=== PATIENT | female | born 1955 | race Caucasian/White ===

== ENCOUNTER → 2020-08-24 10:01 | Outpatient (CLI) | payer OTHER, SELFPAY ==
--- NOTE | 2020-08-24 10:39 | DI.CT.S_ITS ---
PROCEDURE: CT LUMBAR SPINE WO CON INDICATIONS: Other spondylosis with radiculopathy, lumbosacral TECHNIQUE: Noncontrast 3 mm thick sections acquired from the T12 level to the sacrum. Sagittal and coronal reformats were constructed. For radiation dose reduction, the following was used: automated exposure control. COMPARISON: [facility], MR, MR LUMBAR SPINE WITHOUT CONTRAST, 03/10/2020, 17:33. [facility], CR, XR LUMBAR SPINE WITH OLBIQUES PLUS FLEXION EXTENSION, 01/29/2020, 11:29. FINDINGS: Image quality: Excellent. Bones: There is mild L3-L4 anterolisthesis. No acute vertebral body compression fractures. No suspicious lytic or blastic bony lesions. No pars defects. T12-L1: Normal appearance. L1-L2: Normal appearance. L2-L3: Normal appearance. L3-L4: Disc height is normal. Mild, diffuse disc bulge. Moderate to severe bilateral facet hypertrophy. Moderate narrowing of the central canal. Mild bilateral neural foraminal narrowing. No neural compression L4-L5: Loss of disc height. Vacuum disc phenomenon. Mild, diffuse disc bulge. Right central disc extrusion not significantly changed compared to prior MRI. Mild bilateral facet hypertrophy. Moderate to severe narrowing of the central canal. Mild bilateral neural foraminal narrowing. L5-S1: Disc height is normal. Vacuum disc phenomenon. Mild, diffuse disc bulge. Small left central disc protrusion. Mild bilateral facet hypertrophy. Epidural lipomatosis. Severe narrowing of the central canal. Mild right and moderate to severe left neural foraminal narrowing with slight compression of the exiting left L5 nerve root. Soft tissues: Diffuse fatty infiltration of the visualized liver. No retroperitoneal masses or hematomas. Visualized aorta is normal in caliber. Scattered atherosclerotic calcifications involving the visualized abdominal and pelvic vasculature. IMPRESSION: 1. Grade 1 L3-L4 degenerative spondylolisthesis. 2. Multilevel degenerative disc disease. 3. Multilevel facet arthropathy. 4. Severe L5-S1 central canal narrowing. 5. Moderate to severe left L5-S1 neural foraminal narrowing. 6. L4-L5 right central disc extrusion and left central L5-S1 disc protrusion. Dictated by: Nisa Kelley MD, PhD on 08/24/2020 at 12:14 Approved by: Nisa Kelley MD, PhD on 08/24/2020 at 12:20
== END ==
PROVIDERS: PCP Family Medicine; Referring Provider Orthopaedic Surgery Orthopaedic Surgery of the Spine; Visit Provider Orthopaedic Surgery Orthopaedic Surgery of the Spine
DX: M47.27 Other spondylosis with radiculopathy, lumbosacral region (principal); M47.26 Other spondylosis with radiculopathy, lumbar region; M43.16 Spondylolisthesis, lumbar region; M51.16 Intervertebral disc disorders with radiculopathy, lumbar region; M51.17 Intervertebral disc disorders with radiculopathy, lumbosacral region; M48.07 Spinal stenosis, lumbosacral region; M48.061 Spinal stenosis, lumbar region without neurogenic claudication
CPT/HCPCS: 72131

== ENCOUNTER → 2020-08-24 10:35 | Outpatient (CLI) | payer OTHER, SELFPAY ==
[2020-08-24 15:47] LABS: COVID19 -Nasal RAPID Negative (Negative)
== END ==
PROVIDERS: PCP Family Medicine; Visit Provider Physician Assistant
DX: Z01.812 Encounter for preprocedural laboratory examination (principal); Z20.822 Contact with and (suspected) exposure to COVID-19
CPT/HCPCS: 87635

== ENCOUNTER 2020-08-26 10:35 | Inpatient (IN) | payer OTHER, SELFPAY ==
[2020-08-19 13:56] VITALS: BMI 31.4
[2020-08-26] VITALS (11 sets, daily range): BP systolic 144–182; BP diastolic 70–112; PULSE 80–107; RESP 13–16; TEMP 35.7–37.4; O2SAT 93–100; BMI 31.4
--- NOTE | 2020-08-26 | DI.RAD.S_ITS ---
PROCEDURE: XR LUMBAR SPINE 2-3V INDICATIONS: L3-5 TLIF TECHNIQUE: 3 intraoperative fluoroscopic views of the lumbar spine were acquired. COMPARISON: [facility], CT, CT LUMBAR SPINE WO CON, 08/24/2020, 10:23. FINDINGS: 2 limited fluoroscopic images of the lumbar spine demonstrate interval discectomies of the L3-4 and L4-5 discs as well as posterior spinal fusion with bilateral pedicular screws and paraspinal rods. No gross hardware complications. Alignment appears anatomic. IMPRESSION: Intraoperative fluoroscopic support for posterior spinal fusion of L3 through L5. No gross hardware complications. Please see procedural note for further details. Dictated by: Tacho Coreas M.D. on 08/26/2020 at 16:59 Approved by: Tacho Coreas M.D. on 08/26/2020 at 17:01
[2020-08-26] MEDS: LACTATED RINGERS 1,000 ML 42 ML IV ×2 (11:04→15:39)
--- NOTE | 2020-08-26 11:40 | PM.PREOP ---
Pre-operative Note COVID-19 COVID-19 status: Negative Result date/Date tested (Pos, Neg/Pending): 08/24/20 Interval Note History & Physical reviewed/Exam performed by Physician: Yes Changes to H&P: No
[2020-08-26] MEDS: CEFAZOLIN 1 GM VIAL 2 GM IV ×2 (12:51→20:31)
--- NOTE | 2020-08-26 13:21 | SUR.OPER ---
Prone on spine table, head in foam head support, padded chest and pelvic supports, gel pad at knees, lower legs supported by pillows; nipples, genitalia and toes free of pressure, arms secured on foam padded arm boards at <90 degrees abduction. Tape over blanket at thigh secured to table.
[2020-08-26] MEDS: BUPIVACAINE LIPOSOME 266 MG/20 ML VIAL INJ (13:31)
[2020-08-26] MEDS: BUPIVACAINE 0.25% W/ EPI 30 ML VIAL INJ (13:32)
--- NOTE | 2020-08-26 16:43 | PM.OP.1 ---
Operative Date/Time/Diagnoses Date of procedure: 08/26/20 Time of procedure: 13:00 Pre-op diagnosis: 1. L3-4 spondylolisthesis 2. L3-4, L4-5, L5-S1 spinal stenosis 3. Lumbar spondylosis with radiculopathy Post-op diagnosis: same Procedure & Clinicians Procedure: 1. L3-4, L4-5 Postero-lateral and posterior interbody fusion 2. L3-4, L4-5 interbody cage placement. 3. L3-4, L4-5 decompressive laminectomy with bilateral facetecomies 4. L3-4, L4-5 Posterior segmental instrumentation 5. L5-S1 right hemilaminectomy 6. [place] of bone marrow from iliac crest 7. Utilization of microsurgical technique and operating microscope 8. Robotic assisted navigation for implant insertion Same procedure as scheduled: Yes Indications: Patient has been having chronic back pain and worsening lumbar radiculopathy. Patient failed multiple conservative management with worsening pain weakness and numbness in her lower extremity. Patient has been having difficulty performing activity of daily living. After discussing risks benefits of treatment options, patient elected proceed with surgery. Surgeon: Ron Hendrix Forming Roll Operator Heavy Duty: Ridge Burden Click Yes if Unassisted: No Anesthesia Type: General Operative Notes Closure Type: primary Specimen(s): none sent Prosthetic devices, grafts, tissues, transplants, or devices: Globus CREO MIS screws, Rise cages Applied: catheter Estimated Blood Loss (mL): 100 Blood products transfused: none Procedure in detail: Patient was seen in the preoperative area. Risks and benefits of the surgery was discussed with the patient. Informed consent was obtained from the patient and placed in the chart. Surgical site was marked. Patient was taken to the operative room. General anesthesia was administered. Prophylactic antibiotic was given to the patient less than 30 min before the incision was made. Patient was placed into a prone position on the Vince table. Patient's back was then prepped and draped in the sterile fashion. Time-out was performed at this time. After patient was prepped and draped, patient's PSIS was palpated and marked bilaterally. Small 1 cm incision was made over the PSIS for placement of the reference probes. Two trocar was placed into the PSIS 1 on each side. The reference probe was attached to the trocar of the reference apparatus. At this time the C-arm imaging was used to confirm AP and lateral of L3, L4-L5 vertebrae and merged the C-arm imaging using the [employer] robotic navigation system with the CT of the lumbar spine. After successful merging was completed and confirmed, skin marker was used to gloria out the skin incision using the [employer] robotic arm. Bilateral incision was made at this time. Pre templated trajectory was used and guided using the [employer] robotic navigation system for bilateral L3 L4, L5 pedicle screw placement. This was done by using the robotic arm to guide the high-speed bur to make a cortical entry point. Next a drill was placed also using the robotic arm and guided using the navigation system drilling partially through bilateral L3, L4, L5 pedicles. Next L3, L4, L5 pedicle screws it was pre templated and measured was placed onto the power guard driver and inserted into the pedicles bilaterally. After all 6 screws were placed C-arm imaging was taken of both AP and lateral to confirm the placement. Excellent placement of the screws were confirmed and a matched precisely with the pre planned screw placement using the navigation system. MARs retractor was inserted using LookBookerivation guidence. Globus MARS retractors was placed inside the incision and docked onto the L3, L4 lamina. Using microsurgical technique and operating microscope, a L4, L5 laminectomy and L3-4, L4-5 facetectomy was performed using a Kerrison rongeur. Patient was found have severe lateral recess and neural foramen stenosis which was fully decompressed after the laminectomy facetectomy. More than 75% of the facets were removed during the process of decompression rendering L3-4, L4-5 level grossly unstable and required a fusion procedure at the same time. The disc space at L3-4, L4-5 was identified, and a total diskectomy was performed at L3-4, L4-5 level. The endplates were decorticated using a rasp and shaver. The total diskectomy and decortication was performed at L3-4, L4-5 level in order to to accomplish a L3-4, L4-5 fusion. The local bone from the laminectomy and facetectomy was saved for local bone grafting. After the total diskectomy and decortication was completed, Trifecta bone graft material was combined with local bone that was harvested earlier. At this time, a separate skin is incision was made over the iliac crest. A Jamshidi needle was inserted into the iliac crest through a separate skin incision. 5 cc of bone marrow aspiration was obtained through the separate skin incision using a Jamshidi needle from the iliac crest. The bone marrow aspiration was combined with local bone and the Trifecta bone grafting material. The bone grafting material was placed into the L3-4, L4-5 interbody space along with expandable cages. One cage each was inserted into the L3-4 L4-5 interbody space along with bone graft material. The cage was expanded to its maximum height using the torque limiting screwdriver. The disc preparation as well as the cage insertion were also performed under navigation guidance. After the cage was placed, AP and lateral C-arm imaging was taken to confirm placement of the cage and excellent position was confirmed. MARS retractor was redirected over the L5-S1 interval. Using microsurgical technique and operating microscope, a L5-S1 hemilaminectomy was performed using Kerrison rongeur to decompress the epidural space and lateral recess. The L5-S1 space was fully decompressed after the hemilaminectomy was completed. Globus MARS retractor was inserted and docked onto the L3-4, L4-5 posterolateral gutter on the right side. Using the power drill, posterior-lateral decortication was performed at L3-4, L4-5 level until bleeding cortical bone was identified. The remaining bone grafting material was placed into the L3-4, L4-5 posterior lateral gutter he order to accomplish posterolateral fusion at the L3-4, L4-5 level. At this time the tulips were attached to the L3, L4-L5 pedicle screw shanks. After measuring the length of the rods, they were inserted into the tulips of the pedicle screws and locked in place using locking caps and torque limiting screwdriver bilaterally. Total 6 caps and 2 titanium rods was used in order to complete the posterior instrumentation construct. After all the hardware was placed, and confirmed with AP and lateral C-arm imaging, the wound was then irrigated with sterile normal saline and packed with Ray-Herb gauze for 3 min to accomplish hemostasis. After the gauze was removed the deep fascia was closed with #1 Vicryl suture. The subcutaneous layer was closed with 2-0 Vicryl. The skin was closed with skin subha. Patient tolerated the procedure well. There were no complications. Neuro monitoring system was used to monitor patient's neurologic status throughout entire procedure. There was no disturbance of the neural monitoring signals throughout the case. Complications: none Post-operative Condition: stable Disposition: PACU Plan for aftercare: Admit to inpatient hospital
[2020-08-26] MEDS: fentaNYL 100 MCG/2 ML INJ IV ×2 (17:13→17:15)
[2020-08-26] MEDS: OXYCODONE/ACETAMINOPHEN 5/325 TABLET 1 TAB PO (17:18)
[2020-08-26] MEDS: hydrOXYzine pamoate 25 MG CAPSULE PO (18:20)
[2020-08-26] MEDS: HYDROMORPHONE 0.5 MG INJ IV ×3 (18:20→22:55)
[2020-08-26] MEDS: SODIUM CHLORIDE 0.9% 1,000 ML 100 ML IV (18:20)
[2020-08-26] MEDS: ACETAMINOPHEN 325 MG TABLET 650 MG PO (19:26)
[2020-08-26] MEDS: OXYCODONE IR 5 MG TABLET 10 MG PO ×2 (19:26→22:20)
[2020-08-26] MEDS: DOCUSATE 100 MG CAPSULE PO (20:31)
[2020-08-26] MEDS: SENNOSIDES 8.6 MG TABLET 17.2 MG PO (20:31)
[2020-08-26] MEDS: GABAPENTIN 300 MG CAPSULE PO (20:31)
--- NOTE | 2020-08-26 21:48 | PC.NURSE ---
Patient struggling with pain post op. Arrived on unit at 1750 and was in 10/10 pain. Hydroxyzine and 0.5mg dilaudid given at 1819 and oxycodone 10mg given at 1925. Another dose of dilaudid given at 2031 and will plan on giving oxycodone 10mg again at 2199 as patient is more comfortable but still around a 5 consistently and would like to keep ahead of the pain. We have repositioned and offered an ice pack. VS show some HTN and pulses in the 90s, 96% on RA.
[2020-08-27] VITALS (8 sets, daily range): BP systolic 113–178; BP diastolic 61–96; PULSE 77–87; RESP 17–18; TEMP 36.7–37.4; O2SAT 91–100
[2020-08-27] MEDS: ALPRAZolam 0.5 MG TABLET PO (01:10)
[2020-08-27] MEDS: HYDROMORPHONE 0.5 MG INJ IV (01:12)
[2020-08-27] MEDS: lisinopriL 20 MG TABLET PO (01:57)
--- NOTE | 2020-08-27 03:16 | PC.NURSE ---
At shift change patient having 7/10 back pain and had recently been medicated with Dilaudid so repositioned onto side and ice applied to back and pain improved to 4/10. At time of assessment patient alert and oriented. Breath sounds CTA with RA sat of 99%. HRR. BP elevated at 178/96 and noted past BP's also very high and patient had not received Lisinopril yesterday due to surgery so requested/medicated with a.m. dose of Lisinopril. Denied nausea. BT present but denied passing flatus as yet. Indwelling catheter is patent. Is able to turn self with staff encouragement and assistance to position pillows. Dressing to back is CDI. Gait not assessed as has not yet been out of bed. Did state she has some numbness in right thigh and lateral lower leg but admits this was present pre-op. Wearing bilateral foot SCD's. Patient was tearful at 0100 as stated pain back up to 7/10 and was again medicated with Dilaudid and is currently asleep. Also medicated with Alprazolam for anxiety. Fall risk score is moderate and bed alarm is activated.
[2020-08-27] MEDS: OXYCODONE IR 5 MG TABLET 10 MG PO ×2 (03:29→06:26)
[2020-08-27] MEDS: hydrOXYzine pamoate 25 MG CAPSULE PO ×3 (03:29→21:00)
[2020-08-27] MEDS: CEFAZOLIN 1 GM VIAL 2 GM IV (04:53)
[2020-08-27 06:00] LABS: Hematocrit 39.5 % (36-46); Hemoglobin 13.2 g/dL (12.0-16.0)
--- NOTE | 2020-08-27 08:06 | PC.NURSE ---
Addendum entered by Marce Muir R.N. 08/27/20 13:32: Patient started on Decadron and 10mg of iv given, she was just given dilaudid 4mg and this does seem to help her discomfort some. Patient oral intake good, not eating a lot of food at meals yet. She is resting at this time. Original Note: Assess- Patient is alert and oriented x3, she was having some pain issues through the night. Changed pain medication to oral dilaudid, will try this and see if the medication helps more. She has a dressing to her lower back that is cdi, she is able to turn side to side in bed, although it does hurt her. Patients claudio catheter is patent and putting out yellow urine. She is supine and waiting for breakfast. Due for more pain medication around 0930.
[2020-08-27] MEDS: DOCUSATE 100 MG CAPSULE PO ×2 (08:59→20:59)
[2020-08-27] MEDS: ACETAMINOPHEN 325 MG TABLET 650 MG PO (08:59)
[2020-08-27] MEDS: NIFEdipine 30 MG TAB ER PO (08:59)
[2020-08-27] MEDS: HYDROMORPHONE 4 MG TABLET PO ×4 (08:59→20:58)
[2020-08-27] MEDS: SODIUM CHLORIDE 0.9% FLUSH 10 ML IV ×2 (09:00→20:58)
--- NOTE | 2020-08-27 10:53 | OT.IPNOTE ---
Per Pt not wanting to get up for OT at this time. Pt got up with PT earlier to the edge of the bed and felt faint and BP dropped. To check on pt again this afternoon, otherwise to do OT eval tomorrow.
[2020-08-27] MEDS: DEXAMETHASONE 10 MG/ML VIAL IV (12:06)
--- NOTE | 2020-08-27 12:56 | PT.IIE ---
Current Diagnoses Spondylolisthesis, lumbar region (08/26/20) Other spondylosis with radiculopathy, lumbosacral region (08/26/20) Spinal stenosis, lumbar region with neurogenic claudication (08/26/20) Surgery Performed Operation Date: 08/26/20 12:15 Actual Procedures p L5-S1 left hemilaminectomy, L3-4, L4-5 TLIF w. posterior instrumentation - Ron Hendrix MD Medical History (Last Updated 08/19/20 @ 14:17 by Jada Lindsey RN) Anxiety Arthritis Eczema Elevated cholesterol HTN (hypertension) SCC (squamous cell carcinoma) Sciatica Physical Therapy Inpatient Evaluation/Re-Eval M1 PT/OT-IP Prior Functional Status Start: 08/27/20 08:33 Freq: NEEDED Status: Active Protocol: Document 08/27/20 12:33 HH (Rec: 08/27/20 12:56 [id number]) Medical Review Prior Functional Status Medical History Reviewed Yes Diet/Fluid Consistency Regular Communication no deficits noted. able to make needs known Mobility and Gait pt stated she has difficulty for long walk d/t pain. Like furniture cruise somethimes for support. Activities of Daily Living and IADL's IND for ADLs and IADLs without AD Social History Household Members spouse Living Arrangements House Number of Floors (Floors) Two Floors Number of Stairs To Enter/Railing? entry level recruiter then 7steps (R rail) +landing+8 steps (L rail ) to 2nd level. pt has 100 yards from driveway to entrance and will acquire WC for transfer. 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 She has a dtr that lives closeby M2 PT-IP Current Condition Start: 08/27/20 08:33 Freq: NEEDED Status: Active Protocol: Document 08/27/20 12:33 HH (Rec: 08/27/20 12:56 [id number]) Physical Therapy Current Condition Current Condition Evaluation Date 08/27/20 Treatment Diagnosis L3L5 TLIF, L5S1 Hemilaminectomy, difficulty in mobility Onset Date 08/26/20 Precautions Lumbar Precautions Log Roll,No Twisting,Limit Bending,Lifting Restriction of 10 lbs,Gait Belt above Incisional Area Weight Bearing Status Weight Bearing Status Weight Bear as Tolerated M3 PT-IP Subjective Start: 08/27/20 08:33 Freq: NEEDED Status: Active Protocol: Document 08/27/20 12:33 (Rec: 08/27/20 12:56 [id number]) Subjective Physical Therapy Visit Type Type Initial Evaluation Visit Start Time 10:10 Visit Stop Time 10:37 Total Visit Minutes 27 Number of PRE ASSEMBLY WIRER Visits 0 Physical Therapy Visit Comments Patient Comments I havent slept since 1 am, i dont know if i can do much Patient Goals To reduce her back pain and mobilize Therapy Pain Assessment Pain When Pain Assessed During Mobility Pain Present Pain Present Pain Reported Location low back and hips Intensity 8 Scale Used Numeric (0 - 10) Description Aching,Acute,Sharp Pain Behaviors Calling Out,Crying,Facial Grimacing,Guarding Pain Management Techniques Distraction,Modification of Treatment,Re-positioning, Timing of Activity with Medications M4 PT-IP Mobility and Gait Start: 08/27/20 08:33 Freq: NEEDED Status: Active Protocol: Document 08/27/20 12:33 (Rec: 08/27/20 12:56 [id number]) PT-Bed Mobility Assessment Rolling Type of Rolling Roll to Right Level of Assist Moderate Assistance,1 Person Assistance Supine to Sit Supine to Sit Moderate Assistance,2 Person Assistance,Bedrails Sit to Supine Sit to Supine Moderate Assistance,2 Person Assistance,Bedrails PT-Transfer Assessment Comments Mobility Comments Pt was up in bed upon PT arrival. BP in supine = 153/89 . Pt appeared to be nervous regarding getting OOB d/t pain . Pt showed good understanding of post op precautions 3/3. She agreed to attempt getting OOB with PT. Pt needed cues to get into hooklying position. She then rolled to her R side with mod A and bed rail d/t severe pain. Pt was moaning and calling out for pain. Pt rested for 20 seconds and proceeded to get up from sidelying position with max A x1. Pt had a hard time maintainining sitting up and needed FWW to stabilize herself. She then c/o im about to passout so I called for ANATOMY TEACHER assistance and she needed max A x 2 to go back to supine. Used trendelenburg position to assist her to scoot up. Her BP at 115/71 in supine. Pt felt better and appeared to be normal after 2 minutes. Pt's arrived and call light placed within reach for pt. ankle SCD activated. Gait Assessment Comments Gait Comments unable to assess Stair Climbing Assessment Comments Stair Climbing Comments unable to assess PT-Balance Assessment Sitting Balance and Reactions Static Sitting Balance Ability Fair Dynamic Sitting Balance Ability Poor M5 PT-IP Objective Assessments Start: 08/27/20 08:33 Freq: NEEDED Status: Active Protocol: Document 08/27/20 12:33 (Rec: 08/27/20 12:56 [id number]) Orientation Orientation/Cognition Level of Alertness Alert Orientation Name,Age,Birthday,Month,Date, Year,Day of Week,Place, Situation Language Function Ability No Deficits Noted Safety Awareness Understands Safety Issues Memory Description No Deficits Noted Gross Range of Motion Upper Extremity ROM Assessment Within Functional Limits Lower Extremity ROM Assessment Within Functional Limits Strength Lower Extremity Strength Assessment Bilaterally Impaired Comments Strength Comments pt has significant pain with any LE movements. unable to assess true strength. Sensation Assessment Sensation Gross Sensation Right LE Impaired Light Touch Impaired M6 PT-IP Treatment Start: 08/27/20 08:33 Freq: NEEDED Status: Active Protocol: Document 08/27/20 12:33 HH (Rec: 08/27/20 12:56 [id number]) Physical Therapy Treatment Exercises Exercises Ankle Pumps,Gluteal Sets,Quad Sets,Heel Slides,Straight Leg Raises Education Education Provided Precautions,Post-Op Packet, Safety M7 PT-IP Assessment and Plan Start: 08/27/20 08:33 Freq: NEEDED Status: Active Protocol: Document 08/27/20 12:33 (Rec: 08/27/20 12:56 [id number]) PT Summary Assessment and Plan Potential Rehabilitation Potential Good Status of Condition at Evaluation Evolving Summary Impairments Pain,ROM,Strength,Balance, Sensation,Bed Mobility, Transfers,Gait,Activity Tolerance Assessment Summary Luisa is a 65 yo s/p POD1 L3L5 TLIF, L5S1 Hemilaminectomy. PLOF= IND without using AD, but does furniture cruise for support occasionally. Increased pain with mobility. Upon assessment, pt had severe pain for this session and significant drop in BP. Pt overall needed mod<> max A x2p for bed mobility and supine<> sit. She c/o going to passout once she sat up at the EOB and she had to be placed back to supine immediately. Pt is currently far from her baseline and will continuously f/u with her closely. Pt might need skilled care to improve her overall functional mobility and strength. Goals Bed Mobility Goal Minimal Assistance Transfer Goal Minimal Assistance,Front Wheeled Walker Gait Goal Minimal Assistance,Front Wheel Walker Gait Distance 100 Other Goals 15steps with R/ L rail Days to Meet Goals 10 Frequency of Treatment Frequency Of Treatment Twice a Day Treatment Plan Physical Therapy Treatment Plan Bed Mobility Training,Transfer Training,Gait Training, Therapeutic Exercise,Balance Retraining,Post Op Education, Discharge Planning,Hot or Cold Pack,Neuromuscular Re-ed Other Recommendations and Next Treatment check BP, orthostatic Focus review post op precautions mobility as kaitlyn Precautions Lumbar Precautions Log Roll,No Twisting,Limit Bending,Lifting Restriction of 10 lbs,Gait Belt above Incisional Area Recommendations To Nursing Amount of Assist Needed PT/OT Assist Only Discharge Recommendations PT Discharge Recommendations Home with Assistance,Home Health,SNF Rehab,Home vs SNF Other Discharge Recommendations Pt is currently far from her baseline and will continuously f/u with her closely. Pt might need skilled care to improve her overall functional mobility and strength. Transportation Needs at Discharge Wheelchair/Cabulance
--- NOTE | 2020-08-27 14:27 | PT.IPTN ---
Current Diagnoses Spondylolisthesis, lumbar region (08/26/20) Other spondylosis with radiculopathy, lumbosacral region (08/26/20) Spinal stenosis, lumbar region with neurogenic claudication (08/26/20) Surgery Performed Operation Date: 08/26/20 12:15 Actual Procedures p L5-S1 left hemilaminectomy, L3-4, L4-5 TLIF w. posterior instrumentation - Ron Hendrix MD Physical Therapy Treatment Note M2 PT-IP Current Condition Start: 08/27/20 08:33 Freq: NEEDED Status: Active Protocol: Document 08/27/20 14:00 DCW (Rec: 08/27/20 17:45 DCW [id number]) Physical Therapy Current Condition Current Condition Evaluation Date 08/27/20 Treatment Diagnosis L3L5 TLIF, L5S1 Hemilaminectomy, difficulty in mobility Onset Date 08/26/20 Precautions Lumbar Precautions Log Roll,No Twisting,Limit Bending,Lifting Restriction of 10 lbs,Gait Belt above Incisional Area Weight Bearing Status Weight Bearing Status Weight Bear as Tolerated M3 PT-IP Subjective Start: 08/27/20 08:33 Freq: NEEDED Status: Active Protocol: Document 08/27/20 14:00 DCW (Rec: 08/27/20 17:45 DCW [id number]) Subjective Physical Therapy Visit Type Type Treatment Note Visit Start Time 14:00 Visit Stop Time 14:27 Total Visit Minutes 27 Notes Co-treated with OT due to pt's increased assistance required for mobility. Pt was hesitant to participate due to her difficulty in the AM, feeling like she almost passed out after sitting up, but was convinced to at least try. Number of FLOW MACHINE OPERATOR Visits 0 Physical Therapy Visit Comments Patient Comments If I pass out, I don't think you wo can do anything to stop me from going down, so I don' t know if this is a good idea. M4 PT-IP Mobility and Gait Start: 08/27/20 08:33 Freq: NEEDED Status: Active Protocol: Document 08/27/20 14:00 DCW (Rec: 08/27/20 17:45 DCW [id number]) PT-Bed Mobility Assessment Rolling Type of Rolling Roll to Left Level of Assist Maximal Assistance,1 Person Assistance Supine to Sit Supine to Sit Maximum Assistance,2 Person Assistance,Bedrails Sit to Supine Sit to Supine Maximum Assistance,2 Person Assistance Scooting Scooting to Edge of Bed Maximum Assistance PT-Transfer Assessment Sit to and From Stand Sit to and from Stand Moderate Assistance,Maximum Assistance,2 Person Assistance Equipment Transfer Assistive Device Bed Rail,Gait Belt,Front Wheeled Walker Comments Mobility Comments Pt required Max Ax1-2 for all bed mobility, was very stresses about standing due to back pain and earlier feeling like she was near-syncopal. Pt relied heavily on PT/OT support in standing, was unwilling to attempt taking steps, slid feet sideways to move left for better positioning in bed when returning to seated. BP: Supine 145/68, Sitting 156 /97, Standing 163/86 M5 PT-IP Objective Assessments Start: 08/27/20 08:33 Freq: NEEDED Status: Active Protocol: Document 08/27/20 12:33 (Rec: 08/27/20 12:56 [id number]) Orientation Orientation/Cognition Level of Alertness Alert Orientation Name,Age,Birthday,Month,Date, Year,Day of Week,Place, Situation Language Function Ability No Deficits Noted Safety Awareness Understands Safety Issues Memory Description No Deficits Noted Gross Range of Motion Upper Extremity ROM Assessment Within Functional Limits Lower Extremity ROM Assessment Within Functional Limits Strength Lower Extremity Strength Assessment Bilaterally Impaired Comments Strength Comments pt has significant pain with any LE movements. unable to assess true strength. Sensation Assessment Sensation Gross Sensation Right LE Impaired Light Touch Impaired M6 PT-IP Treatment Start: 08/27/20 08:33 Freq: NEEDED Status: Active Protocol: Document 08/27/20 12:33 HH (Rec: 08/27/20 12:56 [id number]) Physical Therapy Treatment Exercises Exercises Ankle Pumps,Gluteal Sets,Quad Sets,Heel Slides,Straight Leg Raises Education Education Provided Precautions,Post-Op Packet, Safety M7 PT-IP Assessment and Plan Start: 08/27/20 08:33 Freq: NEEDED Status: Active Protocol: Document 08/27/20 14:00 DCW (Rec: 08/27/20 17:45 DCW [id number]) PT Summary Assessment and Plan Summary Impairments Pain,ROM,Strength,Balance, Sensation,Bed Mobility, Transfers,Gait,Activity Tolerance Assessment Summary Pt is still significantly limited with mobility due to pain and weakness, as well as increased anxiety. Pt had better luck today keeping BP elevated in sitting and standing, did not feel syncopal like she did this morning. Pt relied heavily on both PT and OT for stability and support in standing, as well as Max A for all bed mobility. Goals Bed Mobility Goal Minimal Assistance Transfer Goal Minimal Assistance,Front Wheeled Walker Gait Goal Minimal Assistance,Front Wheel Walker Gait Distance 100 Other Goals 15steps with R/ L rail Days to Meet Goals 10 Frequency of Treatment Frequency Of Treatment Twice a Day Treatment Plan Physical Therapy Treatment Plan Bed Mobility Training,Transfer Training,Gait Training, Therapeutic Exercise,Balance Retraining,Post Op Education, Discharge Planning,Hot or Cold Pack,Neuromuscular Re-ed Other Recommendations and Next Treatment check BP, orthostatic Focus review post op precautions mobility as kaitlyn Precautions Lumbar Precautions Log Roll,No Twisting,Limit Bending,Lifting Restriction of 10 lbs,Gait Belt above Incisional Area Recommendations To Nursing Amount of Assist Needed PT/OT Assist Only Discharge Recommendations PT Discharge Recommendations Home with Assistance,Home vs SNF Transportation Needs at Discharge Wheelchair/Cabulance
--- NOTE | 2020-08-27 14:46 | OT.IP.EVAL ---
Current Diagnoses Spondylolisthesis, lumbar region (08/26/20) Other spondylosis with radiculopathy, lumbosacral region (08/26/20) Spinal stenosis, lumbar region with neurogenic claudication (08/26/20) Surgery Performed Operation Date: 08/26/20 12:15 Actual Procedures p L5-S1 left hemilaminectomy, L3-4, L4-5 TLIF w. posterior instrumentation - Ron Hendrix MD Past Medical History (Last Reviewed 08/27/20 @ 15:21 by Ridge Burden PA-C) Anxiety Arthritis Eczema Elevated cholesterol History of ankle surgery History of carpal tunnel surgery of right wrist History of surgery (~2008) History of surgery (~2009) HTN (hypertension) Hx of tonsillectomy SCC (squamous cell carcinoma) Sciatica Surgical History (Last Reviewed 08/27/20 @ 15:21 by Ridge Burden PA-C) History of ankle surgery History of carpal tunnel surgery of right wrist History of surgery (~2008) History of surgery (~2009) Hx of tonsillectomy Occupational Therapy Inpatient Evaluation/Re-Eval M1 PT/OT-IP Prior Functional Status Start: 08/27/20 08:33 Freq: NEEDED Status: Active Protocol: Document 08/27/20 14:00 [facility] (Rec: 08/27/20 17:26 [facility] [id number]) Medical Review Prior Functional Status Medical History Reviewed Yes Diet/Fluid Consistency Regular Communication no deficits noted. able to make needs known Mobility and Gait pt stated she has difficulty for long walk d/t pain. Like furniture cruise sometimes for support. Activities of Daily Living and IADL's IND for ADLswithout AD. Pt states could only stand for 5 minutes before having pain and therefore making IADl needs difficult. Social History Household Members spouse Living Arrangements House Number of Floors (Floors) Two Floors Number of Stairs To Enter/Railing? 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 pt has 100 yards from driveway to entrance and will acquire WC for transfer. 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 M2 OT-IP Current Condition Start: 08/27/20 17:08 Freq: Status: Active Protocol: Document 08/27/20 14:00 [facility] (Rec: 08/27/20 17:26 [facility] [id number]) Occupational Therapy Current Condition Current Condition Evaluation Date 08/27/20 Treatment Diagnosis S/P L3-4, L4-5 TLIF, L5-S1 right hemilaminectomy Diagnosis Onset Date 08/26/20 Post Operative Precautions Lumbar Precautions Log Roll,No Twisting,Limit Bending,Lifting Restriction of 10 lbs,Gait Belt above Incisional Area M3 OT- IP Subjective and Pain Start: 08/27/20 17:08 Freq: Status: Active Protocol: Document 08/27/20 14:00 [facility] (Rec: 08/27/20 17:26 [facility] [id number]) OT- Subjective Occupational Therapy Visit Type Type Initial Evaluation Visit Start Time 14:00 Visit Stop Time 14:46 Total Visit Minutes 46 Occupational Therapy Visit Comments Patient Comments Pt agreed to get up in PM, PT present to assist due to pt needing extensive assist for mobility needs at this time. Patient/Caregiver Goals To go home. OT Pain Assessment Pain When Pain Assessed During Mobility Pain Present Pain Present Pain Reported M4 OT- IP ADL's Start: 08/27/20 17:08 Freq: Status: Active Protocol: Document 08/27/20 14:00 [facility] (Rec: 08/27/20 17:26 [facility] [id number]) OT [id number] Comments OT Self-Feeding Comments NOt at meal time. OT ADL-Grooming Comments OT Grooming Comments Not performed. OT ADL-Oral Care Comments Oral Care Comments Educated to pt , when standing best to spit into a cup to best follow her back precautions. OT ADL-Dressing General Eval Lower Body Dressing Ability Maximum Assistance Areas Needing Assistance Socks Comments OT Dressing Comments At this time MAX A for LB dressing needs, to practice with pt tomorrow when more able to tolerate therapy. Pt already has a manager infusion at home. OT ADL-Toileting Comments OT Toileting Comments Educated stand to wipe, however pt states prior had difficulty to wipe do to gaining weight , back pain and limited ROM in her wrists to be able to wipe. Educated pt on toilet paper aid and bidet as options to increase her independence. Pt also states her would be willing to assist her if needed. OT ADL-Bathing Comments OT Bathing Comments Not at this time. M5 OT- IP IADL's Start: 08/27/20 17:08 Freq: Status: Active Protocol: Document 08/27/20 14:00 [facility] (Rec: 08/27/20 17:26 [facility] [id number]) OT-Instrumental Activities of Daily Living Home Safety Awareness Awareness of Need for Assistance at Home Good Awareness Home Safety Comments Pt a little groggy, best for her to assist her with all needs at this time. M6 OT- IP Functional Cognition Start: 08/27/20 17:08 Freq: Status: Active Protocol: Document 08/27/20 14:00 [facility] (Rec: 08/27/20 17:26 [facility] [id number]) Cognitive Factors Limiting Selfcare Function Cognitive Ability Level of Alertness Alert Patient Orientation Name,Age,Birthday,Month,Date, Year,Day of Week,Place, Situation Attention Span Ability Capable of Focused Attention, Capable of Sustained Attention Ability to Follow Commands Able to Follow One Step Commands Safety Awareness Decreased Recall of Precautions,Decreased Ability to Apply Precautions Cognitive Comments Cognitive Assessment Comments Pt a little groggy and having difficulty to follow directions at times and needing step by step commands to follow. To continue to assess for cognitive needs. OT- Vision and Hearing OT- Hearing Assessment OT- Hearing Assessment WFL M7 OT- IP Mobility and Balance Start: 08/27/20 17:08 Freq: Status: Active Protocol: Document 08/27/20 14:00 [facility] (Rec: 08/27/20 17:26 [facility] [id number]) OT- Bed Mobility Assessment Rolling Type of Rolling Roll to Right Level of Assistance Maximum Assistance,1 Person Assistance Supine to Sit Supine to Sit Assist Maximum Assistance,2 Person Assistance,Bedrails Sit to Supine Sit to Supine Assist Maximum Assistance,2 Person Assistance Scooting Scooting to Edge of Bed Maximum Assistance,2 Person Assistance OT-Transfer Assessment Sit to and From Stand Sit to and from Stand Moderate Assistance,Maximum Assistance,2 Person Assistance Comments Mobility Comments MAX A for all bed mobility needs, pt tends to tighten up and has difficulty to be able to assist especially from sidelying to upright position at this time. Pt able to stand form high bed with MOD/ MAX A x2 to FWW. Pt not able to take any steps but able to move her feet side to side in order to move sideways closer to the head of the bed. Supine bp 145/88, sitting 170/93 and 156/97 , and in standing 163/86. OT- Balance Assessment Sitting Balance and Reactions Static Sitting Balance Ability Fair Dynamic Sitting Balance Ability Poor Standing Balance and Reactions Static Standing Balance Ability Poor Comments Other Balance Tests/Deviations/Treatment Pt initially needing MODA to : sit upright and then CGA when her feet were able to touch the floor. M8 OT- IP Objective Assessments Start: 08/27/20 17:08 Freq: Status: Active Protocol: Document 08/27/20 14:00 [facility] (Rec: 08/27/20 17:26 [facility] [id number]) OT Gross Range of Motion Upper Extremity Range of Motion Assessment Bilaterally Impaired ROM Impairments Pt bilateral wrists R>L AROM . M9 OT- IP Assessment and Plan Start: 08/27/20 17:08 Freq: Status: Active Protocol: Document 08/27/20 14:00 [facility] (Rec: 08/27/20 17:26 [facility] [id number]) OT Summary Assessment and Plan Potential Rehabilitation Potential Good Analytic Complexity at Evaluation Moderate Summary OT Impairments Pain,Range of Motion,Strength, Balance,Coordination, Functional Cognition, Functional Mobility,Grooming, Dressing,Toileting,Bathing, Toilet Transfers,Shower Transfers,Activity Tolerance Progress Towards Goals Slow Progress due to Pain,Slow Progress due to Medical Issues,Slow Progress due to Activity Tolerance Assessment Summary Pt MOD complexity and now needing extensive assist x2 for bed mobility needs. Pt has history of scaphoid fx in right hand which will make toileting and dressing needs more difficulty for her.TO continue to educated on adaptive devices such as curved, curved utensils to assist with her ADl needs. Pt has a supportive that works from home that will be able to assist her. Pending caregiver training and progress either SNF versus home with assist. Goals Grooming Goal Independent Dressing Goal Independent Toileting Goal Minimal Assistance Bathing Goal Independent Toilet Transfer Goal Independent Shower Transfer Goal Independent Patient/Caregiver Education Goal Demonstrate Post-Op Precautions,Caregiver Independent Assisting Patient Days to Meet Goals 20 Frequency of Treatment Frequency Of Treatment Once a Day Treatment Plan OT Treatment Plan ADL Training,Functional Cognition Training,Functional Mobility,Patient/Family Education,Discharge Planning Other Treatment Recommendations and Next Transfer to [facility] with MAX X 2 Treatment Focus and FWW. Discharge Recommendations OT Discharge Recommendations Home vs SNF Home Equipment Needs Tub bench, BSC Transportation Needs at Discharge Wheelchair/Cabulance
--- NOTE | 2020-08-27 14:55 | CM.IDA ---
Initial DCP Assessment Note Pt is a 65 yo female, resident of [place], now POD#1 from spinal surgery w/ Dr Hendrix PCP: Camryn Martinez Payer: Adrian WATERS Reviewed chart, met w/patient and her spouse Emanuel, introduced role. 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 Patient plans to return home w/spouse to assist, does not anticipate needs from this PACK WORKER but does reference needing more time to recover in the hospital According to initial PT note; DC needs TBD pending patient's ability to progress w/therapy team. DC planning team will follow closely and can address DC needs or concerns if they arise. MAGDALENO Leos Discharge Planning/Care Management CM Discharge Assessment Start: 08/27/20 14:05 Freq: Status: Active Protocol: Document 08/27/20 14:06 [facility] (Rec: 08/27/20 14:55 [facility] [id number]) Discharge Planning Assessment Assigned Load Planner MAGDALENO Childress DPOA/Assigned Designee Name Emanuel Grace, spouse Contact Information [phone] Advance Directives? No History Provided By Patient,Significant Other Prior Living Arrangements House Household Members spouse Type of transporation used prior to Drives own vehicle admit Independent with ADL's Yes: Activity limited d/t pain Is patient alert and oriented? Yes Patient/Family Preference Home with Home Health Comment Pending progress w/therapy team Barriers to Discharge Yes Comment Weakness and pain POD#1 Discharge Plan Home Transportation Arrangement Family Whiteboard Updated in Patient Room with Yes name and ext. # of Load Planner
--- NOTE | 2020-08-27 15:19 | P.PN_ITS ---
Subjective Subjective Date Patient Seen: 08/27/20 Time Patient Seen: 15:19 Interval history: Patient states she is doing well overall and is in moderate discomfort at rest. At this time she denies fever, chills, nausea, chest pain, or shortness of breath. Patient reports good sensation throughout the bilateral lower extremities. She notes that her pain has improved significantly since this morning. Exam Vital Signs (past 8 hours): - 08/27/20 08:00 08/27/20 12:00 Temperature 98.6 F 98.8 F Pulse Rate 84 77 Respiratory Rate 17 18 Blood Pressure 125/76 123/91 H Pulse Oximetry 100 99 Oxygen Delivery Method Room Air Oxygen Flow Rate 0 Narrative Exam Narrative: 65-year-old female postop day 1 status post lumbar fusion. Patient is resting comfortably in bed, is in no acute distress, is alert and oriented x3. Skin is warm and dry, skin surrounding the incision site is free o f erythema, warmth, induration, or discharge. Dressing over the incision site is clean, dry, and intact. Good sensation appreciated throughout the bilateral lower extremities to light touch. Ankle dorsiflexion, plantar flexion, eversion, inversion performed bilaterally without difficulty or discomfort. Calves are soft nontender, negative Homans sign. DP pulses palpated bilaterally and are even. No other signs of DVT appreciated. Const General: cooperative, healthy appearing and comfortable Resp Effort & Inspection: normal respiratory effort and able to speak in complete sentences Skin General: no rashes or lesions noted Objective Labs Result Diagrams: 08/27/20 05:23 Labs: Laboratory Results - last 24 hr 08/27/20 05:23 Hgb 13.2 Hct 39.5 PFSH Medical History Anxiety Arthritis Eczema Elevated cholesterol HTN (hypertension) SCC (squamous cell carcinoma) Sciatica Surgical History History of ankle surgery History of carpal tunnel surgery of right wrist History of surgery (~2008) History of surgery (~2009) Hx of tonsillectomy Social History household members: spouse Smoking Status: Former smoker alcohol intake: current Assessment & Plan Post-op Postoperative Procedures: Procedures Operation Date: 08/26/20 12:15 Actual Procedure Side Surgeon p L5-S1 left hemilaminectomy, L3-4, L4-5 TLIF w. posterior instrumentation Ron Hendrix MD Postoperative day: 1 Postoperative status: doing well Postoperative plan: ambulate Postoperative plan narrative: Patient is to continue working on ambulation with the assistance of a front wheeled walker and stair [place] with physical therapy. Current pain management regimen is to be continued as it is adequately controlled the patient's pain level. Will continue to monitor the patient's progress with physical therapy as she has had pain with increased activity. Quality VTE Deep Vein Thrombosis/Pulmonary Embolism Present on Admission: No
[2020-08-27] MEDS: dexAMETHasone 4 MG TABLET PO (18:15)
[2020-08-27] MEDS: SENNOSIDES 8.6 MG TABLET 17.2 MG PO (20:59)
[2020-08-27] MEDS: ZOLPIDEM 5 MG TABLET PO (20:59)
[2020-08-27] MEDS: GABAPENTIN 300 MG CAPSULE PO (21:00)
--- NOTE | 2020-08-28 01:53 | PC.NURSE ---
Addendum entered by Echo Ravi R.N. 08/28/20 05:10: States pain now back up to 7/10 although FLACC score only 2. Too early to give additional Dilaudid so medicated with Oxycodone. Addendum entered by Ehco Ravi R.N. 08/28/20 03:45: Medicated with 2mg of po Dilaudid (requested only 2mg rather than 4mg) + Vistaril at 0312 for 7/10 pain. Now ice pack applied to back Original Note: Patient is drowsy but verbally appropriate and oriented. Breath sounds CTA with RA sat of 94%. HRR. BP improved tonight at 130/74. Denies nausea. BT present and is passing flatus. Indwelling catheter is patent; urine is clear yellow. Is able to move self but reluctant to do so. Has gotten out of bed only with PT/OT assistance so gait not assessed. Dressing to back is CDI. Still having some numbness in right LE which was present pre-op but states it has lessened. Has had some pain control problems but currently denies pain and declines pain medication. Refusing SCD's but demonstrates ankle waving. Fall risk score is moderate; bed alarm not in use at this time.
[2020-08-28] MEDS: hydrOXYzine pamoate 25 MG CAPSULE PO ×3 (03:12→20:39)
[2020-08-28] MEDS: HYDROMORPHONE 2 MG TABLET PO (03:12)
[2020-08-28 03:35] VITALS: BP 147/81; PULSE 84; RESP 18; TEMP 36.5; O2SAT 95
[2020-08-28] MEDS: OXYCODONE IR 5 MG TABLET 10 MG PO (05:09)
[2020-08-28] MEDS: dexAMETHasone 4 MG TABLET PO (05:59)
[2020-08-28 08:13] VITALS: BP 145/89; PULSE 78; RESP 16; TEMP 36.7; O2SAT 96
--- NOTE | 2020-08-28 08:21 | PC.NURSE ---
Addendum entered by Marce Muir R.N. 08/28/20 10:44: Patient is now a two person assist with nursing assistance and RNs. She is sitting up in the chair and tolerating well. Original Note: Patient seems to be feeling better today. She would like to stick with taking dilaudid 4mg today. Dressing is cdi with old blood drainage present. She denies numbness or tingling of the lower extremities now, and states that has went away. She is a physical therapy assist, claudio patent and putting out yellow urine. CMS wnl and ppx2.
[2020-08-28] MEDS: HYDROMORPHONE 4 MG TABLET PO ×4 (08:31→20:39)
[2020-08-28] MEDS: NIFEdipine 30 MG TAB ER PO (08:31)
[2020-08-28] MEDS: DOCUSATE 100 MG CAPSULE PO ×2 (08:31→20:39)
[2020-08-28] MEDS: lisinopriL 20 MG TABLET PO (08:31)
--- NOTE | 2020-08-28 09:30 | OT.IP.TRT ---
Current Diagnoses Spondylolisthesis, lumbar region (08/26/20) Other spondylosis with radiculopathy, lumbosacral region (08/26/20) Spinal stenosis, lumbar region with neurogenic claudication (08/26/20) Surgery Performed Operation Date: 08/26/20 12:15 Actual Procedures p L5-S1 left hemilaminectomy, L3-4, L4-5 TLIF w. posterior instrumentation - Ron Hendrix MD Occupational Therapy Treatment Note M2 OT-IP Current Condition Start: 08/27/20 17:08 Freq: Status: Active Protocol: Document 08/27/20 14:00 [facility] (Rec: 08/27/20 17:26 [facility] [id number]) Occupational Therapy Current Condition Current Condition Evaluation Date 08/27/20 Treatment Diagnosis S/P L3-4, L4-5 TLIF, L5-S1 right hemilaminectomy Diagnosis Onset Date 08/26/20 Post Operative Precautions Lumbar Precautions Log Roll,No Twisting,Limit Bending,Lifting Restriction of 10 lbs,Gait Belt above Incisional Area M3 OT- IP Subjective and Pain Start: 08/27/20 17:08 Freq: Status: Active Protocol: Document 08/28/20 09:03 [facility] (Rec: 08/28/20 11:11 [facility] [id number]) OT- Subjective Occupational Therapy Visit Type Type Treatment Note Visit Start Time 09:03 Visit Stop Time 09:30 Total Visit Minutes 27 Occupational Therapy Visit Comments Patient Comments Pt agreed to get up, [employer] present for the session due to pt needing extensive assist for bed mobility needs. Patient/Caregiver Goals TO go home. OT Pain Assessment Pain When Pain Assessed During Mobility Pain Present Pain Present Pain Reported M4 OT- IP ADL's Start: 08/27/20 17:08 Freq: Status: Active Protocol: Document 08/27/20 14:00 [facility] (Rec: 08/27/20 17:26 [facility] [id number]) OT UTM-Trgt-Gnilequ Comments OT Self-Feeding Comments NOt at meal time. OT ADL-Grooming Comments OT Grooming Comments Not performed. OT ADL-Oral Care Comments Oral Care Comments Educated to pt , when standing best to spit into a cup to best follow her back precautions. OT ADL-Dressing General Eval Lower Body Dressing Ability Maximum Assistance Areas Needing Assistance Socks Comments OT Dressing Comments At this time MAX A for LB dressing needs, to practice with pt tomorrow when more able to tolerate therapy. Pt already has a physician assistant primary care at home. OT ADL-Toileting Comments OT Toileting Comments Educated stand to wipe, however pt states prior had difficulty to wipe do to gaining weight , back pain and limited ROM in her wrists to be able to wipe. Educated pt on toilet paper aid and bidet as options to increase her independence. Pt also states her woudl be willing to assist her if needed. OT ADL-Bathing Comments OT Bathing Comments Not at this time. M5 OT- IP IADL's Start: 08/27/20 17:08 Freq: Status: Active Protocol: Document 08/27/20 14:00 [facility] (Rec: 08/27/20 17:26 [facility] [id number]) OT-Instrumental Activities of Daily Living Home Safety Awareness Awareness of Need for Assistance at Home Good Awareness Home Safety Comments Pt a little groogy, best for her to assist her with all needs at this time. M6 OT- IP Functional Cognition Start: 08/27/20 17:08 Freq: Status: Active Protocol: Document 08/28/20 09:03 [facility] (Rec: 08/28/20 11:11 [facility] [id number]) Cognitive Factors Limiting Selfcare Function Cognitive Ability Patient Orientation Name,Age,Birthday,Month,Date, Year,Day of Week,Place, Situation Attention Span Ability Capable of Focused Attention, Capable of Sustained Attention Ability to Follow Commands Able to Follow One Step Commands Memory Description No Deficits Noted Cognitive Comments Cognitive Assessment Comments Pt more alert and following directions better. Pt stil needing some cue for safety awareness of hand placement and encouragement. M7 OT- IP Mobility and Balance Start: 08/27/20 17:08 Freq: Status: Active Protocol: Document 08/28/20 09:03 [facility] (Rec: 08/28/20 11:11 [facility] [id number]) OT- Bed Mobility Assessment Rolling Type of Rolling Roll to Right Level of Assistance Minimal Assistance,1 Person Assistance,Bedrails Supine to Sit Supine to Sit Assist Maximum Assistance,2 Person Assistance,Bedrails OT-Transfer Assessment Sit to and From Stand Sit to and from Stand Moderate Assistance,2 Person Assistance Transfers Transfer Ability Minimal Assistance,1 Person Assistance Technique Transfer Destination Bed,Chair Transfer Technique Stand Step Pivot Devices Transfer Assistive Devices Gait Belt,Front Wheeled Walker Comments Mobility Comments Pt still needing heavy MAX A x2 from sidelying to upright. Pt states looking to sleep in her recliner and have her raise up the recliner to increase her ability to stand. MODA X 2 to stand to FWW and FELIBERTO with FWW. Pt states her wrists hurt a lot when pushing on the FWW. Pt was wondering about having a platform walker. To go over with her later to see if it would be beneficial for the pt to have. OT- Balance Assessment Sitting Balance and Reactions Static Sitting Balance Ability Good Dynamic Sitting Balance Ability Fair Standing Balance and Reactions Static Standing Balance Ability Fair Comments Other Balance Tests/Deviations/Treatment Pt todday sitting balance : improved to CGA and SBA once pt able to get to midline. M8 OT- IP Objective Assessments Start: 08/27/20 17:08 Freq: Status: Active Protocol: Document 08/27/20 14:00 [facility] (Rec: 08/27/20 17:26 [facility] [id number]) OT Gross Range of Motion Upper Extremity Range of Motion Assessment Bilaterally Impaired ROM Impairments Pt bilateral wrists R>L AROM . M9 OT- IP Assessment and Plan Start: 08/27/20 17:08 Freq: Status: Active Protocol: Document 08/28/20 09:03 [facility] (Rec: 08/28/20 11:11 [facility] [id number]) OT Summary Assessment and Plan Potential Rehabilitation Potential Good Analytic Complexity at Evaluation Moderate Summary OT Impairments Pain,Range of Motion,Strength, Balance,Coordination, Functional Cognition, Functional Mobility,Grooming, Dressing,Toileting,Bathing, Toilet Transfers,Shower Transfers,Activity Tolerance Progress Towards Goals Progressing Toward Goals Assessment Summary Pt still needing MAX A X2 to for bed mobility needs, however able to transfer today with one person assist after standing with MODA X2 with FWW. Pt insistent on going home and will hire assist if needed in addition to having her assist at home. Therefore since pt refusing SNF, pt to go home with 05/09 assist and additional assist as needed. Pt now states able to stay on the main level with no steps to get into the house. Pt also planning on getting a wc for use. Goals Grooming Goal Independent Dressing Goal Independent Toileting Goal Minimal Assistance Bathing Goal Independent Toilet Transfer Goal Independent Shower Transfer Goal Independent Patient/Caregiver Education Goal Demonstrate Post-Op Precautions,Caregiver Independent Assisting Patient Days to Meet Goals 15 Frequency of Treatment Frequency Of Treatment Once a Day Treatment Plan OT Treatment Plan ADL Training,Functional Cognition Training,Functional Mobility,Patient/Family Education,Discharge Planning Other Treatment Recommendations and Next caregiver training Treatment Focus Discharge Recommendations OT Discharge Recommendations Home with 24/ Assist Available,Home vs SNF Other Discharge Recommendations Pt refusing SNF at this time . Home Equipment Needs Tub bench, BSC, Transportation Needs at Discharge Private Vehicle
--- NOTE | 2020-08-28 09:31 | PT.IPTN ---
Current Diagnoses Spondylolisthesis, lumbar region (08/26/20) Other spondylosis with radiculopathy, lumbosacral region (08/26/20) Spinal stenosis, lumbar region with neurogenic claudication (08/26/20) Surgery Performed Operation Date: 08/26/20 12:15 Actual Procedures p L5-S1 left hemilaminectomy, L3-4, L4-5 TLIF w. posterior instrumentation - Ron Hendrix MD Physical Therapy Treatment Note M2 PT-IP Current Condition Start: 08/27/20 08:33 Freq: NEEDED Status: Active Protocol: Document 08/27/20 14:00 [facility] (Rec: 08/27/20 17:45 [facility] [id number]) Physical Therapy Current Condition Current Condition Evaluation Date 08/27/20 Treatment Diagnosis L3L5 TLIF, L5S1 Hemilaminectomy, difficulty in mobility Onset Date 08/26/20 Precautions Lumbar Precautions Log Roll,No Twisting,Limit Bending,Lifting Restriction of 10 lbs,Gait Belt above Incisional Area Weight Bearing Status Weight Bearing Status Weight Bear as Tolerated M3 PT-IP Subjective Start: 08/27/20 08:33 Freq: NEEDED Status: Active Protocol: Document 08/28/20 09:02 [facility] (Rec: 08/28/20 09:53 [facility] [id number]) Subjective Physical Therapy Visit Type Type Treatment Note Visit Start Time 09:02 Visit Stop Time 09:31 Total Visit Minutes 29 Notes co treat with OT Physical Therapy Visit Comments Patient Comments Pt willing to work with therapy Therapy Pain Assessment Pain When Pain Assessed During Mobility Pain Present Pain Present Pain Reported M4 PT-IP Mobility and Gait Start: 08/27/20 08:33 Freq: NEEDED Status: Active Protocol: Document 08/28/20 09:02 [facility] (Rec: 08/28/20 09:53 [facility] [id number]) PT-Bed Mobility Assessment Rolling Type of Rolling Roll to Left Level of Assist Minimal Assistance,1 Person Assistance Sit to Supine Sit to Supine Maximum Assistance,2 Person Assistance Scooting Scooting to Edge of Bed Maximum Assistance PT-Transfer Assessment Sit to and From Stand Sit to and from Stand Moderate Assistance,2 Person Assistance,Use of Upper Extremities Equipment Transfer Assistive Device Bed Rail,Gait Belt,Front Wheeled Walker Comments Mobility Comments Pt able to roll to left with Min A, pt then required Max Ax2 to from sidelying to sit and Max A x1 for scooting forward with use of draw sheet . Pt felt dizzy sitting on EOB , BP 157/89. Pt then required Mod A x2 to stand, pt unablel to push from bed and pt places hands on walker while therapy stablizes walker. Pt able to ambulate around bed ~15ft requiring CGA with small step thru gait pattern. Pt required cues to keep walker close until in position to sit. Pt with poor eccentric quad control during descent to chair and required Max A for scooting back in chair. Pt c/o dizziness, BP in sitting 107/ 62. After sitting rest BP in sitting 129/79 after a few minutes BP in sitting 126/72. Pt attempted to scoot forward in chair but unable and required cues for wt shifting hips and use of draw sheet. Pt then stood Mod A x2 with hands on FWW. Pt then returned to sitting Mod A with better control. Pt left in chair with all needs within reach. CG training with is scheduled for 1330 this afternoon. Gait Assessment Gait Gait Assistance Required: Contact Guard Assist,1 Person Assist Distance (Feet) 15 Able to Maintain Weight Bearing Status Yes During Gait Assistive Devices Assistive Device Gait Belt,Front Wheeled Walker Orthotic/Prosthetic Devices or Brace: No Gait Deviations General Gait Pattern Antalgic,Decreased Stride Length,Decreased Feet Clearance Factors Limiting Gait Function Factors Limiting Gait Function Decreased Activity Tolerance, Decreased Strength,Limited Range of Motion,Pain,Poor Balance Comments Gait Comments see mobility section. Stair Climbing Assessment Comments Stair Climbing Comments no stairs as pt will be staying on main level. M5 PT-IP Objective Assessments Start: 08/27/20 08:33 Freq: NEEDED Status: Active Protocol: Document 08/27/20 12:33 (Rec: 08/27/20 12:56 [id number]) Orientation Orientation/Cognition Level of Alertness Alert Orientation Name,Age,Birthday,Month,Date, Year,Day of Week,Place, Situation Language Function Ability No Deficits Noted Safety Awareness Understands Safety Issues Memory Description No Deficits Noted Gross Range of Motion Upper Extremity ROM Assessment Within Functional Limits Lower Extremity ROM Assessment Within Functional Limits Strength Lower Extremity Strength Assessment Bilaterally Impaired Comments Strength Comments pt has significant pain with any LE movements. unable to assess true strength. Sensation Assessment Sensation Gross Sensation Right LE Impaired Light Touch Impaired M6 PT-IP Treatment Start: 08/27/20 08:33 Freq: NEEDED Status: Active Protocol: Document 08/27/20 12:33 [facility] (Rec: 08/27/20 12:56 [facility] [id number]) Physical Therapy Treatment Exercises Exercises Ankle Pumps,Gluteal Sets,Quad Sets,Heel Slides,Straight Leg Raises Education Education Provided Precautions,Post-Op Packet, Safety M7 PT-IP Assessment and Plan Start: 08/27/20 08:33 Freq: NEEDED Status: Active Protocol: Document 08/28/20 09:02 [facility] (Rec: 08/28/20 09:53 [facility] [id number]) PT Summary Assessment and Plan Summary Impairments Pain,ROM,Strength,Balance, Sensation,Bed Mobility, Transfers,Gait,Activity Tolerance Progress Towards Goals Slow Progress due to Pain Assessment Summary Pt recalls 3/3 back precautions. Pt improving with mobility but continues to require Max to Mod A for bed mobility and sit<>Stand. Pt improving with gait able to ambulate ~15ft w/FWW/CGA. Pt will arrive for CG training today at 1330. Pt also stated she can hire help at home if needed. Goals Bed Mobility Goal Minimal Assistance Transfer Goal Minimal Assistance,Front Wheeled Walker Gait Goal Minimal Assistance,Front Wheel Walker Gait Distance 100 Other Goals 15steps with R/ L rail Days to Meet Goals 10 Frequency of Treatment Frequency Of Treatment Twice a Day Treatment Plan Physical Therapy Treatment Plan Bed Mobility Training,Transfer Training,Gait Training, Therapeutic Exercise,Balance Retraining,Post Op Education, Discharge Planning,Hot or Cold Pack,Neuromuscular Re-ed Other Recommendations and Next Treatment check BP, orthostatic Focus review post op precautions mobility as kaitlyn Precautions Lumbar Precautions Log Roll,No Twisting,Limit Bending,Lifting Restriction of 10 lbs,Gait Belt above Incisional Area Recommendations To Nursing Amount of Assist Needed 2 Person Assist Discharge Recommendations PT Discharge Recommendations Home with Assistance,Home Health,SNF vs Acute Rehab Transportation Needs at Discharge Wheelchair/Cabulance
--- NOTE | 2020-08-28 14:42 | PT.IPTN ---
Current Diagnoses Spondylolisthesis, lumbar region (08/26/20) Other spondylosis with radiculopathy, lumbosacral region (08/26/20) Spinal stenosis, lumbar region with neurogenic claudication (08/26/20) Surgery Performed Operation Date: 08/26/20 12:15 Actual Procedures p L5-S1 left hemilaminectomy, L3-4, L4-5 TLIF w. posterior instrumentation - Ron Hendrix MD Physical Therapy Treatment Note M2 PT-IP Current Condition Start: 08/27/20 08:33 Freq: NEEDED Status: Active Protocol: Document 08/27/20 14:00 [facility] (Rec: 08/27/20 17:45 [facility] [id number]) Physical Therapy Current Condition Current Condition Evaluation Date 08/27/20 Treatment Diagnosis L3L5 TLIF, L5S1 Hemilaminectomy, difficulty in mobility Onset Date 08/26/20 Precautions Lumbar Precautions Log Roll,No Twisting,Limit Bending,Lifting Restriction of 10 lbs,Gait Belt above Incisional Area Weight Bearing Status Weight Bearing Status Weight Bear as Tolerated M3 PT-IP Subjective Start: 08/27/20 08:33 Freq: NEEDED Status: Active Protocol: Document 08/28/20 13:25 [facility] (Rec: 08/28/20 14:42 [facility] [id number]) Subjective Physical Therapy Visit Type Type Treatment Note Visit Start Time 13:25 Visit Stop Time 14:13 Total Visit Minutes 48 Notes present for CG training Number of [employer] Visits 2 Physical Therapy Visit Comments Patient Comments Pt willing to work with therapy Therapy Pain Assessment Pain When Pain Assessed During Mobility Pain Present Pain Present Pain Reported M4 PT-IP Mobility and Gait Start: 08/27/20 08:33 Freq: NEEDED Status: Active Protocol: Document 08/28/20 13:25 [facility] (Rec: 08/28/20 14:42 [facility] [id number]) PT-Bed Mobility Assessment Sit to Supine Sit to Supine Maximum Assistance Scooting Scooting to Edge of Bed Maximum Assistance PT-Transfer Assessment Sit to and From Stand Sit to and from Stand Maximum Assistance,1 Person Assistance Equipment Transfer Assistive Device Bed Rail,Gait Belt,Front Wheeled Walker Comments Mobility Comments Pt required Mod A for scooting to edge of chair and Max A for sit-stand from chair. Pt unable to push from arms of chair requiring the walker to be braced while pt stands with hands on walker. Pt ambulated in room with providing CGA. Pt with increased bilateral wrist pain R>L and platform for R arm placed on FWW, pt with less wrist pain. Second platform will be placed on walker tomorrow for ambulation for trial to decrease pain in bilateral wrists. Pt plans to aquire platform attachments. Pt sat on bed CGA and requires Max A for reverse LR, getting legs onto bed and adjusting in bed for proper positioning. Pt left in bed with alarm on , all needs within reach and RN present. Gait Assessment Gait Gait Assistance Required: Contact Guard Assist,1 Person Assist Distance (Feet) 15 Able to Maintain Weight Bearing Status Yes During Gait Assistive Devices Assistive Device Gait Belt,Front Wheeled Walker Orthotic/Prosthetic Devices or Brace: No Gait Deviations General Gait Pattern Antalgic,Decreased Stride Length,Decreased Feet Clearance Factors Limiting Gait Function Factors Limiting Gait Function Decreased Activity Tolerance, Decreased Strength,Limited Range of Motion,Pain,Poor Balance Comments Gait Comments see mobility section. Stair Climbing Assessment Comments Stair Climbing Comments no stairs as pt will be staying on main level. M5 PT-IP Objective Assessments Start: 08/27/20 08:33 Freq: NEEDED Status: Active Protocol: Document 08/27/20 12:33 (Rec: 08/27/20 12:56 [id number]) Orientation Orientation/Cognition Level of Alertness Alert Orientation Name,Age,Birthday,Month,Date, Year,Day of Week,Place, Situation Language Function Ability No Deficits Noted Safety Awareness Understands Safety Issues Memory Description No Deficits Noted Gross Range of Motion Upper Extremity ROM Assessment Within Functional Limits Lower Extremity ROM Assessment Within Functional Limits Strength Lower Extremity Strength Assessment Bilaterally Impaired Comments Strength Comments pt has significant pain with any LE movements. unable to assess true strength. Sensation Assessment Sensation Gross Sensation Right LE Impaired Light Touch Impaired M6 PT-IP Treatment Start: 08/27/20 08:33 Freq: NEEDED Status: Active Protocol: Document 08/27/20 12:33 (Rec: 08/27/20 12:56 [id number]) Physical Therapy Treatment Exercises Exercises Ankle Pumps,Gluteal Sets,Quad Sets,Heel Slides,Straight Leg Raises Education Education Provided Precautions,Post-Op Packet, Safety M7 PT-IP Assessment and Plan Start: 08/27/20 08:33 Freq: NEEDED Status: Active Protocol: Document 08/28/20 13:25 [facility] (Rec: 08/28/20 14:42 [facility] [id number]) PT Summary Assessment and Plan Summary Impairments Pain,ROM,Strength,Balance, Sensation,Bed Mobility, Transfers,Gait,Activity Tolerance Progress Towards Goals Slow Progress due to Pain Assessment Summary Pt continues to require Max A for sit-stand and bed mobility . Pt with bilateral wrist pain during gait with FWW may benefit from platform walker, will trial tomorrow. Pt not sure he will be able to assist pt safely at home and SNF rehab to improve strength for functional mobility may be needed, Maribel from informed. Goals Bed Mobility Goal Minimal Assistance Transfer Goal Minimal Assistance,Front Wheeled Walker Gait Goal Minimal Assistance,Front Wheel Walker Gait Distance 100 Other Goals 15steps with R/ L rail Days to Meet Goals 10 Frequency of Treatment Frequency Of Treatment Twice a Day Treatment Plan Physical Therapy Treatment Plan Bed Mobility Training,Transfer Training,Gait Training, Therapeutic Exercise,Balance Retraining,Post Op Education, Discharge Planning,Hot or Cold Pack,Neuromuscular Re-ed Other Recommendations and Next Treatment CG training with at Focus 1000 08/29. Precautions Lumbar Precautions Log Roll,No Twisting,Limit Bending,Lifting Restriction of 10 lbs,Gait Belt above Incisional Area Recommendations To Nursing Amount of Assist Needed 2 Person Assist Discharge Recommendations PT Discharge Recommendations Home with Assistance,Home Health,SNF vs Acute Rehab Transportation Needs at Discharge Wheelchair/Cabulance
--- NOTE | 2020-08-28 15:05 | CM.DPNOTE ---
Faxed referral packet at [facility]'s request to [facility] and received fax con. Greer Meyer CM Asst.
[2020-08-28 16:15] VITALS: BP 140/76; PULSE 81; RESP 20; TEMP 36.8; O2SAT 96
[2020-08-28 20:35] VITALS: BP 163/84; PULSE 93; RESP 18; TEMP 37.1; O2SAT 95
[2020-08-28] MEDS: SODIUM CHLORIDE 0.9% FLUSH 10 ML IV (20:39)
[2020-08-28] MEDS: SENNOSIDES 8.6 MG TABLET 17.2 MG PO (20:39)
[2020-08-28] MEDS: ZOLPIDEM 5 MG TABLET PO (20:45)
[2020-08-28 23:38] VITALS: BP 123/73; PULSE 79; RESP 18; TEMP 36.1; O2SAT 95
[2020-08-29] MEDS: HYDROMORPHONE 4 MG TABLET PO ×2 (01:39→09:04)
[2020-08-29] MEDS: ALPRAZolam 0.5 MG TABLET PO (01:43)
[2020-08-29 05:32] VITALS: BP 139/71; PULSE 80; RESP 16; TEMP 36.6; O2SAT 93
[2020-08-29 07:00] VITALS: BP 154/85; PULSE 81; RESP 18; TEMP 36.7; O2SAT 98
--- NOTE | 2020-08-29 08:43 | P.PN_ITS ---
Subjective Subjective Date Patient Seen: 08/29/20 Time Patient Seen: 08:43 Interval history: Patient states she is doing well overall and is in moderate discomfort at rest. At this time she denies fever, chills, nausea, chest pain, shortness of breath, or urinary retention. Patient reports good sensation throughout the bilateral lower extremities. Exam Vital Signs (past 8 hours): - 08/29/20 05:32 Temperature 97.8 F Pulse Rate 80 Respiratory Rate 16 Blood Pressure 139/71 Pulse Oximetry 93 Oxygen Delivery Method Room Air Oxygen Flow Rate 0 Narrative Exam Narrative: 65-year-old female postop day 3 status post lumbar fusion. Patient is resting comfortably in bed, is in no acute distress, and is alert and oriented x3. Skin is warm and dry, and the skin surrounding the incision site is free of erythema, warmth, induration, or discharge. Dressing over the incision site is clean, dry, and intact. Good sensation appreciated throughout the bilateral lower extremities light touch. Ankle dorsiflexion, plantar flexion, eversion, inversion performed bilaterally without difficulty or discomfort. Calves are soft and nontender, negative Homans sign. DP pulses palpated bilaterally and are even. No other signs of DVT appreciated. Const General: cooperative, healthy appearing and comfortable Resp Effort & Inspection: normal respiratory effort and able to speak in complete sentences Skin General: no rashes or lesions noted Objective Labs Result Diagrams: 08/27/20 05:23 [facility] Medical History Anxiety Arthritis Eczema Elevated cholesterol HTN (hypertension) SCC (squamous cell carcinoma) Sciatica Surgical History History of ankle surgery History of carpal tunnel surgery of right wrist History of surgery (~2008) History of surgery (~2009) Hx of tonsillectomy Social History household members: spouse Smoking Status: Former smoker alcohol intake: current Assessment & Plan Post-op Postoperative Procedures: Procedures Operation Date: 08/26/20 12:15 Actual Procedure Side Surgeon p L5-S1 left hemilaminectomy, L3-4, L4-5 TLIF w. posterior instrumentation Alexys Hendrix MD Postoperative day: 3 Postoperative status: doing well Postoperative plan: ambulate Postoperative plan narrative: Patient is to continue working on ambulation with the assistance of a front wheeled walker with physical therapy. Current pain management regimen is to be continued as it is adequately controlled the patient's pain level. Sequential compression devices are to be continued for DVT prophylaxis. Pending successful work with PT today plan for discharge likely home with the possibility of home health assistance. Quality VTE Deep Vein Thrombosis/Pulmonary Embolism Present on Admission: No
[2020-08-29] MEDS: ACETAMINOPHEN 325 MG TABLET 650 MG PO (09:03)
[2020-08-29] MEDS: hydrOXYzine pamoate 25 MG CAPSULE PO (09:03)
[2020-08-29] MEDS: lisinopriL 20 MG TABLET PO (09:04)
[2020-08-29] MEDS: DOCUSATE 100 MG CAPSULE PO (09:04)
[2020-08-29] MEDS: NIFEdipine 30 MG TAB ER PO (09:06)
[2020-08-29] MEDS: SODIUM CHLORIDE 0.9% FLUSH 10 ML IV (09:57)
--- NOTE | 2020-08-29 10:28 | PT.IPTN ---
Current Diagnoses Spondylolisthesis, lumbar region (08/26/20) Other spondylosis with radiculopathy, lumbosacral region (08/26/20) Spinal stenosis, lumbar region with neurogenic claudication (08/26/20) Surgery Performed Operation Date: 08/26/20 12:15 Actual Procedures p L5-S1 left hemilaminectomy, L3-4, L4-5 TLIF w. posterior instrumentation - Ron Hendrix MD Physical Therapy Treatment Note M2 PT-IP Current Condition Start: 08/27/20 08:33 Freq: NEEDED Status: Active Protocol: Document 08/27/20 14:00 DCW (Rec: 08/27/20 17:45 DCW [id number]) Physical Therapy Current Condition Current Condition Evaluation Date 08/27/20 Treatment Diagnosis L3L5 TLIF, L5S1 Hemilaminectomy, difficulty in mobility Onset Date 08/26/20 Precautions Lumbar Precautions Log Roll,No Twisting,Limit Bending,Lifting Restriction of 10 lbs,Gait Belt above Incisional Area Weight Bearing Status Weight Bearing Status Weight Bear as Tolerated M3 PT-IP Subjective Start: 08/27/20 08:33 Freq: NEEDED Status: Active Protocol: Document 08/29/20 09:42 CLB (Rec: 08/29/20 12:41 CLB [id number]) Subjective Physical Therapy Visit Type Type Treatment Note Visit Start Time 09:42 Visit Stop Time 10:28 Total Visit Minutes 46 Notes present for CG training 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 Visits 3 Physical Therapy Visit Comments Patient Comments Pt willing to work with therapy Therapy Pain Assessment Pain When Pain Assessed During Mobility Pain Present Pain Present Pain Reported M4 PT-IP Mobility and Gait Start: 08/27/20 08:33 Freq: NEEDED Status: Active Protocol: Document 08/29/20 09:42 CLB (Rec: 08/29/20 12:41 CLB [id number]) PT-Bed Mobility Assessment Rolling Type of Rolling Roll to Left Level of Assist Standby Assistance Supine to Sit Supine to Sit Minimal Assistance,1 Person Assistance Sit to Supine Sit to Supine Minimal Assistance,1 Person Assistance Scooting Scooting to Edge of Bed Minimal Assistance PT-Transfer Assessment Sit to and From Stand Sit to and from Stand Minimal Assistance,1 Person Assistance,Use of Upper Extremities Equipment Transfer Assistive Device Gait Belt,Platform Walker Orthotic/Prosthetic Devices or Brace: No Comments Mobility Comments Pt fitted for platform walker. Pt in chair able to stand with providing walker stability and Min A. Pt ambulated CGA with ~ 60ft. Pt sat CGA for rest break , pt stood a second time ambulating in room ~15ft. Pt sat on EOB CGA and requiring Min A of LE's onto bed then CGA for reverse LR into supine . Pt took rest break then was able to LR to left SBA then requiring Min A of upper body from sidelying to sit. Pt then required Min A from with use of draw sheet. Pt stood from bed Min A and ambulate back to chair sitting in chair. Pt left in chair with call light and all needs within reach, . Gait Assessment Gait Gait Assistance Required: Contact Guard Assist,1 Person Assist Distance (Feet) 60 Able to Maintain Weight Bearing Status Yes During Gait Assistive Devices Assistive Device Gait Belt,Front Wheeled Walker Orthotic/Prosthetic Devices or Brace: No Gait Deviations General Gait Pattern Antalgic,Decreased Stride Length,Decreased Feet Clearance Factors Limiting Gait Function Factors Limiting Gait Function Decreased Activity Tolerance, Decreased Strength,Limited Range of Motion,Pain,Poor Balance Comments Gait Comments see mobility section. Stair Climbing Assessment Comments Stair Climbing Comments no stairs as pt will be staying on main level. M5 PT-IP Objective Assessments Start: 08/27/20 08:33 Freq: NEEDED Status: Active Protocol: Document 08/27/20 12:33 (Rec: 08/27/20 12:56 [id number]) Orientation Orientation/Cognition Level of Alertness Alert Orientation Name,Age,Birthday,Month,Date, Year,Day of Week,Place, Situation Language Function Ability No Deficits Noted Safety Awareness Understands Safety Issues Memory Description No Deficits Noted Gross Range of Motion Upper Extremity ROM Assessment Within Functional Limits Lower Extremity ROM Assessment Within Functional Limits Strength Lower Extremity Strength Assessment Bilaterally Impaired Comments Strength Comments pt has significant pain with any LE movements. unable to assess true strength. Sensation Assessment Sensation Gross Sensation Right LE Impaired Light Touch Impaired M6 PT-IP Treatment Start: 08/27/20 08:33 Freq: NEEDED Status: Active Protocol: Document 08/27/20 12:33 (Rec: 08/27/20 12:56 [id number]) Physical Therapy Treatment Exercises Exercises Ankle Pumps,Gluteal Sets,Quad Sets,Heel Slides,Straight Leg Raises Education Education Provided Precautions,Post-Op Packet, Safety M7 PT-IP Assessment and Plan Start: 08/27/20 08:33 Freq: NEEDED Status: Active Protocol: Document 08/29/20 09:42 CLB (Rec: 08/29/20 12:41 CLB [id number]) PT Summary Assessment and Plan Summary Impairments Pain,ROM,Strength,Balance, Sensation,Bed Mobility, Transfers,Gait,Activity Tolerance Progress Towards Goals Progressing Toward Goals Assessment Summary Pt improving with all mobility with good pain control. Pt present at able to provide all assist during tx. Pt requires Min A for sit- stand, LE's onto bed and from sidelying to sitting. Pt trialed use of platform walker to decrease wrist pain and is able to increase gait distance. Pt and educated on car transfer and has WC to get pt from car to front door. Pt has recliner at home and plans to sleep in recliner the first few days at home. Pt will stay on main level and will not need to navigate stairs. Pt seems able to d/c home with to assist her 05/09 and if medically stable. Goals Bed Mobility Goal Minimal Assistance Transfer Goal Minimal Assistance,Front Wheeled Walker Gait Goal Minimal Assistance,Front Wheel Walker Gait Distance 100 Other Goals 15steps with R/ L rail Days to Meet Goals 10 Frequency of Treatment Frequency Of Treatment Twice a Day Treatment Plan Physical Therapy Treatment Plan Bed Mobility Training,Transfer Training,Gait Training, Therapeutic Exercise,Balance Retraining,Post Op Education, Discharge Planning,Hot or Cold Pack,Neuromuscular Re-ed Precautions Lumbar Precautions Log Roll,No Twisting,Limit Bending,Lifting Restriction of 10 lbs,Gait Belt above Incisional Area Recommendations To Nursing Amount of Assist Needed 1 Person Assist Discharge Recommendations PT Discharge Recommendations Home with 05/09 Assist Available Transportation Needs at Discharge Private Vehicle
--- NOTE | 2020-08-29 10:29 | P.DS_ITS ---
History of Present Illness History of Present Illness Date Patient Seen: 08/29/20 Time Patient Seen: 10:29 Chief complaint: OPB Narrative: Refer to previous HPI. Discharge Providers Provider Discharge Date: 08/29/20 Primary care physician: Camryn Martinez MD Consults: 08/26/20 17:56 Consult to Occupational Therapy Evaluate & Treat Comment: Physician Instructions: Evaluate and treat Consult to Physical Therapy Evaluate & Treat Comment: Physician Instructions: Evaluate and Treat Discharge provider: Ridge Burden PA-C Summary Hospital Course Discharge Diagnosis: L3-4 spondylolisthesis L3-4, L4-5, L5-S1 spinal stenosis Lumbar spondylosis with radiculopathy Status post L3-4, L4-5 Postero-lateral and posterior interbody fusion 2. L3-4, L4-5 interbody cage placement. 3. L3-4, L4-5 decompressive laminectomy with bilateral facetecomies 4. L3-4, L4-5 Posterior segmental instrumentation 5. L5-S1 right hemilaminectomy 6. [place] of bone marrow from iliac crest 7. Utilization of microsurgical technique and operating microscope 8. Robotic assisted navigation for implant insertion Hospital Course: Patient was admitted to the hospital following the above-listed procedure for the above-listed diagnosis. Following the procedure the patient has been convalescing appropriately in her pain has been managed with her current pain management regimen. Throughout the course of time in the hospital the patient has denied fever, chills, nausea, chest pain, shortness of breath, or urinary retention. Dressing over the incision site has remained clean, dry, and intact and has been changed as needed if it has become damaged or soiled. Patient has successfully worked on ambulation with the assistance of a front wheeled walker with physical therapy. She has remained weight-bearing as tolerated and is avoid bending, twisting, or lifting. Status at Discharge Cognitive/behavioral status at discharge: oriented Functional status at discharge: uses cane/walker Overall status at discharge: patient is progressing back to baseline Exam Vital Signs (past 8 hours): - 08/29/20 05:32 08/29/20 07:00 Temperature 97.8 F 98.0 F Pulse Rate 80 81 Respiratory Rate 16 18 Blood Pressure 139/71 154/85 H Pulse Oximetry 93 98 Oxygen Delivery Method Room Air Oxygen Flow Rate 0 Narrative Exam Narrative: 65-year-old female postop day 3 status post lumbar fusion. Patient is resting comfortably in bed, is in no acute distress, and is alert and oriented x3. Skin is warm and dry, and the skin surrounding the incision site is free of erythema, warmth, induration, or discharge. Dressing over the inc ision site is clean, dry, and intact. Good sensation appreciated throughout the bilateral lower extremities light touch. Ankle dorsiflexion, plantar flexion, eversion, inversion performed bilaterally without difficulty or discomfort. Calves are soft and nontender, negative Homans sign. DP pulses palpated bilaterally and are even. No other signs of DVT appreciated. Const General: cooperative, healthy appearing and comfortable Resp Effort & Inspection: normal respiratory effort and able to speak in complete sentences Skin General: no rashes or lesions noted Objective Labs Result Diagrams: 08/27/20 05:23 [facility] Medical History Anxiety Arthritis Eczema Elevated cholesterol HTN (hypertension) SCC (squamous cell carcinoma) Sciatica Surgical History History of ankle surgery History of carpal tunnel surgery of right wrist History of surgery (~2008) History of surgery (~2009) Hx of tonsillectomy Social History household members: spouse Smoking Status: Former smoker alcohol intake: current Discharge Assessment & Plan Assessment and Plan Assessment: Patient is doing well and is stable. Plan of Treatment: First postoperative visit in clinic is scheduled for 2 weeks following discharge from the hospital. Current pain management regimen is to be continued as it is adequately controlled the patient's pain level. Dressing over the incision site is to remain clean, dry, and intact. Dressing can be changed as needed if it becomes damaged or soiled. Patient is to remain weight-bearing as tolerated with the assistance of a front wheeled walker when walking. Avoid bending, twisting, or lifting. Patient is to contact clinic with any concerns or questions. Any signs of increased redness, swelling, warmth, pain, or discharge from around the incision site should be reported to the clinic. Discharge Plan Discharge Plan Patient Disposition: Home Provider Discharge Comment: Patient cleared for discharge pending PT clearance. Discharge orders & Medications Discharge Orders: Discharge (Order); Ordered 08/29/20 Ordered By: Ridge Burden Prescriptions: New acetaminophen 325 mg Tablet 650 mg PO Q6HR PRN (Reason: Pain, Mild (1-3)) Qty: 90 RF: 0 oxycodone 5 mg Tablet 10 mg PO Q3HR PRN (Reason: Pain, Severe (7-10)) Qty: 42 RF: 0 hydroxyzine pamoate 25 mg Capsule 25 mg PO Q4HR PRN (Reason: Nausea And Vomiting) Qty: 40 RF: 0 Continued tramadol 50 MG tablet 100 mg PO BID Qty: 0 RF: 0 alprazolam [Xanax] 0.5 MG tablet 0.5 mg PO DAILY PRN (Reason: Anxiety) Qty: 0 RF: 0 ibuprofen 200 mg Capsule 400 mg PO BID RF: 0 nifedipine 30 mg Tablet Extended Release 30 mg PO DAILY RF: 0 lisinopril 20 mg Tablet 20 mg PO DAILY RF: 0 gabapentin 300 mg capsule 300 mg PO BEDTIME RF: 0 Follow up/Referrals: Camryn Martinez MD [Primary Care Provider] - Diet/Activity/Treatments Diet: Diet as Tolerated and Regular Activity: Weight-bearing as tolerated with the assistance of a front wheeled walker. Limit bending, twisting, lifting. Skin/Wound/Dressing Care Report to your healthcare provider any signs of infection, such as:: chills, fever, night sweats, increased pain, unusual drainage and unusual redness Dressing: Dressing over the incision site can be changed as needed if it becomes damaged or soiled. Other wound treatment: Avoid placing topical ointments over the incision site. Avoid soaking the incision site. Visit Report/Discharge Packet Instructions: DI for Constipation, How to Prevent Falls, DI for Transforaminal Lumbar Interbody Fusion Stand Alone Forms: Surgery Discharge Discharge Data Primary Care Provider: Camryn Martinez Attending Provider: Ron Hendrix VTE Deep Vein Thrombosis/Pulmonary Embolism Present on Admission: No
--- NOTE | 2020-08-29 11:04 | OT.IP.TRT ---
Current Diagnoses Spondylolisthesis, lumbar region (08/26/20) Other spondylosis with radiculopathy, lumbosacral region (08/26/20) Spinal stenosis, lumbar region with neurogenic claudication (08/26/20) Surgery Performed Operation Date: 08/26/20 12:15 Actual Procedures p L5-S1 left hemilaminectomy, L3-4, L4-5 TLIF w. posterior instrumentation - Ron Hendrix MD Occupational Therapy Treatment Note M2 OT-IP Current Condition Start: 08/27/20 17:08 Freq: Status: Active Protocol: Document 08/27/20 14:00 [facility] (Rec: 08/27/20 17:26 [facility] [id number]) Occupational Therapy Current Condition Current Condition Evaluation Date 08/27/20 Treatment Diagnosis S/P L3-4, L4-5 TLIF, L5-S1 right hemilaminectomy Diagnosis Onset Date 08/26/20 Post Operative Precautions Lumbar Precautions Log Roll,No Twisting,Limit Bending,Lifting Restriction of 10 lbs,Gait Belt above Incisional Area M3 OT- IP Subjective and Pain Start: 08/27/20 17:08 Freq: Status: Active Protocol: Document 08/29/20 12:29 [facility] (Rec: 08/29/20 12:44 [facility] [id number]) OT- Subjective Occupational Therapy Visit Type Type Treatment Note Visit Start Time 10:25 Visit Stop Time 11:04 Total Visit Minutes 39 Occupational Therapy Visit Comments Patient Comments Pt wanting to shower , pt's present for caregiver training. Patient/Caregiver Goals To go home. OT Pain Assessment Pain When Pain Assessed At Rest Pain Present Pain Present Pain Reported Location low back and hips Intensity 5 Scale Used Numeric (0 - 10) M4 OT- IP ADL's Start: 08/27/20 17:08 Freq: Status: Active Protocol: Document 08/29/20 12:29 [facility] (Rec: 08/29/20 12:44 [facility] [id number]) OT ADL-Grooming General Evaluation Grooming Ability Standby Assistance OT ADL-Dressing General Eval Lower Body Dressing Ability Standby Assistance Comments OT Dressing Comments Pt able to comfortably cross her legs over to do all LB dressing needs. Pt not wanting to get or use any LB dressing equipment. OT ADL-Toileting Comments OT Toileting Comments Pt not able to reach to wipe properly and looking to getting a bidet. OT ADL-Bathing Bathing Type Bathing Type Shower General Evaluation Bathing Ability Minimal Assistance Areas Needing Assistance Wash/Dry Upper Body Comments OT Bathing Comments Able to educated pt to use a long thin towel and when seated to wrap the towel around her leg, hold onto it with one hand and then after standing able with use of grab bar and then to clean her pericares need by use of moving the towel back and forth between her legs. OT giving her CGA for balance. Pt not open to having her assist and to get her daughter to come and assist for showers. M5 OT- IP IADL's Start: 08/27/20 17:08 Freq: Status: Active Protocol: Document 08/27/20 14:00 [facility] (Rec: 08/27/20 17:26 [facility] [id number]) OT-Instrumental Activities of Daily Living Home Safety Awareness Awareness of Need for Assistance at Home Good Awareness Home Safety Comments Pt a little groogy, best for her to assist her with all needs at this time. M6 OT- IP Functional Cognition Start: 08/27/20 17:08 Freq: Status: Active Protocol: Document 08/29/20 12:29 [facility] (Rec: 08/29/20 12:44 [facility] [id number]) Cognitive Factors Limiting Selfcare Function Cognitive Ability Level of Alertness Alert Patient Orientation Name,Age,Birthday,Month,Date, Year,Day of Week,Place, Situation Attention Span Ability Capable of Focused Attention, Capable of Sustained Attention Ability to Follow Commands Able to Follow One Step Commands Memory Description No Deficits Noted Safety Awareness Underestimates Need for Assistance Cognitive Comments Cognitive Assessment Comments Pt having good follow through of back precautions today.Pt insistent on how she completes tasks. M7 OT- IP Mobility and Balance Start: 08/27/20 17:08 Freq: Status: Active Protocol: Document 08/29/20 12:29 [facility] (Rec: 08/29/20 12:44 [facility] [id number]) OT-Transfer Assessment Sit to and From Stand Sit to and from Stand Minimal Assistance,Moderate Assistance Transfers Transfer Ability Minimal Assistance Technique Transfer Destination Chair,Shower Stall Transfer Technique Stand Step Pivot Devices Transfer Assistive Devices Gait Belt,Platform Walker Comments Mobility Comments Pt's able to provide adequate assist for transfer needs and able to safely andrea/ doff the gait belt with use of platform walker. Pt not wanting to attach the straps for the platform walker on her arms and then therapist able to show her that she will not be able to lift and move the platform walker over the lip on the shower and her needing to move the walker for her. OT- Balance Assessment Sitting Balance and Reactions Static Sitting Balance Ability Normal Dynamic Sitting Balance Ability Good Standing Balance and Reactions Static Standing Balance Ability Fair Comments Other Balance Tests/Deviations/Treatment Much improved today. : M8 OT- IP Objective Assessments Start: 08/27/20 17:08 Freq: Status: Active Protocol: Document 08/27/20 14:00 [facility] (Rec: 08/27/20 17:26 [facility] [id number]) OT Gross Range of Motion Upper Extremity Range of Motion Assessment Bilaterally Impaired ROM Impairments Pt bilateral wrists R>L AROM . M9 OT- IP Assessment and Plan Start: 08/27/20 17:08 Freq: Status: Active Protocol: Document 08/29/20 12:29 [facility] (Rec: 08/29/20 12:44 [facility] [id number]) OT Summary Assessment and Plan Potential Rehabilitation Potential Good Analytic Complexity at Evaluation Moderate Summary OT Impairments Pain,Range of Motion,Strength, Balance,Coordination, Functional Cognition, Functional Mobility,Grooming, Dressing,Toileting,Bathing, Toilet Transfers,Shower Transfers,Activity Tolerance Progress Towards Goals Progressing Toward Goals Assessment Summary Pt's able to assist pt for ADl and transfer needs. Pt not wanting her to assist her in the shower and will have her daughter assist. Pt looking to go home today. Goals Grooming Goal Independent Dressing Goal Independent Toileting Goal Minimal Assistance Bathing Goal Independent Toilet Transfer Goal Independent Shower Transfer Goal Independent Patient/Caregiver Education Goal Demonstrate Post-Op Precautions,Caregiver Independent Assisting Patient Days to Meet Goals 5 Frequency of Treatment Frequency Of Treatment Once a Day Treatment Plan OT Treatment Plan ADL Training,Functional Cognition Training,Functional Mobility,Patient/Family Education,Discharge Planning Discharge Recommendations OT Discharge Recommendations Home with Assistance Home Equipment Needs Tub bench, BSC, Transportation Needs at Discharge Private Vehicle
--- NOTE | 2020-08-29 12:14 | PC.NURSE ---
Went over dc instructions and medications with patient and patients spouse, questions answered. Rx for new meds given to patient, patient taken voa wc to vehicle driven by spouse, patient had all belongings.
--- NOTE | 2020-08-29 14:00 | PC.NURSE ---
Pending discharge: Pt feels ready to d/c home. Has been voiding w/out diff. Tolerates diet w/out problems. No bm yet and discussed remedies she can use at home. Pt was switched to dilaudid yesterday for pain. She reports it is much more effective than the oxy was although she still does have a high pain level. Pt feels she can tolerate it at home. Dressing changed to coversite this am. Has 4 stapled incisions, wound edges approx, no drainage, minimal redness. She has been following her lami instructions w/minimal cues. Seen by JOHNATHAN Burden and received his d/c instructions. Seen by PT and given their instructions. Awaiting OT and spouse for wound care coordinator training.
--- NOTE | 2020-08-29 14:07 | PC.NURSE ---
Given d/c instructions by Darcie GANT and spouse received infant caregiver training. Pt d/c home via auto w/spouse.
--- NOTE | 2020-08-29 16:30 | CM.DPNOTE ---
DC Note According to therapy team and agreed upon by patient/spouse, plan is for DC home JOHNATHAN Sabillon aware and completed DC order today. HH initially indicated, RELL Walsh explains patient does not want or require HH services Plan: DC home w/spouse to assist and close outpatient f/u as ordered by Ortho team JW
== END 2020-08-29 11:15 | disposition home or self-care (01) | DRG 455 ==
LOC: OR 10:35 → AC 10:35
PROVIDERS: Admitting Provider Orthopaedic Surgery Orthopaedic Surgery of the Spine; PCP Family Medicine; Referring Provider Orthopaedic Surgery Orthopaedic Surgery of the Spine; Visit Provider Orthopaedic Surgery Orthopaedic Surgery of the Spine
PROC: 0SG10AJ Fusion of 2 or more Lumbar Vertebral Joints with Interbody Fusion Device, Posterior Approach, Anterior Column, Open Approach (ICD-10-PCS; principal; 2020-08-26 12:15)
DX: M48.062 Spinal stenosis, lumbar region with neurogenic claudication (principal); M43.16 Spondylolisthesis, lumbar region; M47.27 Other spondylosis with radiculopathy, lumbosacral region; I10 Essential (primary) hypertension; F41.9 Anxiety disorder, unspecified; Z87.891 Personal history of nicotine dependence; M48.07 Spinal stenosis, lumbosacral region; M47.26 Other spondylosis with radiculopathy, lumbar region; M51.17 Intervertebral disc disorders with radiculopathy, lumbosacral region; M48.061 Spinal stenosis, lumbar region without neurogenic claudication; Z01.812 Encounter for preprocedural laboratory examination; Z20.822 Contact with and (suspected) exposure to COVID-19
CPT/HCPCS: 36415; 72100; 72131; 76000; 85014; 85018; 87635; 97116; 97162; 97166; 97530; 97535; C1776; C9290; J0690; J1100; J1170; J2250; J2405; J2704; J3010

== ENCOUNTER → 2022-01-24 14:27 | Outpatient (CLI) | payer OTHER, SELFPAY ==
[2020-08-26 18:00] VITALS: BMI 31.4
--- NOTE | 2022-01-24 14:33 | DI.CT.S_ITS ---
PROCEDURE: CT LUMBAR SPINE WO CON INDICATIONS: SPINAL STENOSIS LUMBAR REGION TECHNIQUE: Noncontrast 3 mm thick sections acquired from the T12 level to the sacrum. Sagittal and coronal reformats were constructed. For radiation dose reduction, the following was used: automated exposure control. COMPARISON: [facility] MR, MR LUMBAR SPINE WITHOUT CONTRAST, 12/15/2021, 13:02. [facility], CT, CT LUMBAR SPINE WO CON, 08/24/2020, 10:23. FINDINGS: Image quality: Excellent. Bones: Postsurgical changes are again seen from posterior fusion extending from L3 through L5 with pedicle screws and interbody rods. Disc spacers are seen at the L3-4 and L4-5 levels. There is mild subsidence of the disc spacer at the L4-5 level. There is normal bony alignment. No acute vertebral body compression fractures. No suspicious lytic or blastic bony lesions. No pars defects. T12-L1: No significant disc bulging, spinal canal stenosis, or neural foraminal narrowing. L1-L2: No significant disc bulging, spinal canal stenosis, or neural foraminal narrowing. L2-L3: Mild circumferential disc bulging and mild bilateral facet hypertrophy. No significant spinal canal stenosis or neural foraminal narrowing. L3-L4: Postsurgical changes are seen with associated metal streak artifact. Facet hypertrophy is present. No significant narrowing of the bony spinal canal. Probable mild bilateral neural foraminal narrowing. L4-L5: Postsurgical changes are seen with associated metal streak artifact. Bilateral facet hypertrophy. Mild right neural foraminal narrowing without significant spinal canal stenosis or left neural foraminal narrowing. L5-S1: Loss of disc space height and vacuum disc phenomenon is seen with left paracentral disc extrusions that does not appear significantly changed when compared to the MRI from 12/15/2021. Moderate bilateral facet hypertrophy. There is narrowing of the spinal canal and effacement of the left lateral recess. Moderate bilateral neural foraminal narrowing. Soft tissues: No retroperitoneal masses or hematomas. Mild aortic atherosclerotic calcifications. Grade 2 fatty infiltration of the paraspinous musculature. IMPRESSION: 1. Postsurgical changes redemonstrated at L3-4 and L4-5. Metallic hardware is intact. 2. At L5-S1, left paracentral disc extrusion does not appear significantly changed when compared to the MRI from 12/15/2021. 3. Additional multilevel degenerative disc disease and facet hypertrophy as described in detail in the body of the report. Approved by: Neil Dunaway M.D. on 01/24/2022 at 15:26
== END ==
PROVIDERS: PCP Family Medicine; Referring Provider Orthopaedic Surgery Orthopaedic Surgery of the Spine; Visit Provider Orthopaedic Surgery Orthopaedic Surgery of the Spine
DX: M48.061 Spinal stenosis, lumbar region without neurogenic claudication (principal); M51.27 Other intervertebral disc displacement, lumbosacral region; M51.36 Other intervertebral disc degeneration, lumbar region; Z98.1 Arthrodesis status
CPT/HCPCS: 72131; 93005; 93010